=== PATIENT | male | born 1965 | race Two or more races ===

== ENCOUNTER 2020-03-25 00:55 | Emergency (ER) | payer SELFPAY ==
--- NOTE | 2020-03-25 01:05 | PDOC ---
History of Present Illness - General Chief Complaint: Alcohol intoxication Stated Complaint: INTOX Time Seen by Provider: 03/25/20 01:04 History Source: Patient Exam Limitations: Intoxication - History of Present Illness Initial Comments: 03/25/20 01:05 Pt presents to the ED intoxicated without signs or history of trauma. found intoxicated on the street, as per EMS. Patient is arousable to touch, but unable to answer questions. Past History - Medical History Home Medications: Ambulatory Orders Unobtainable 03/25/20 Review of Systems - Review of Systems Able to Perform ROS?: No (intoxicated ) *Physical Exam - Physical Exam 03/25/20 01:11 Gen; lethargic, arousable to touch HEENT: normocephalic, atraumatic CV: rrr no m/r/g Pulm: CTA b/l Abdomen: soft, non tender, non distended ext: no edema, deformity or tenderness NEuro: mumbles when touched. Oriented to name. Moving all extremities with good strength. Medical Decision Making - Medical Decision Making 03/25/20 01:18 Pt presents to the ED intoxicated without signs or history of trauma. Fingerstick is 99. Will hold for sobriety. 03/25/20 06:24 Patient is now awake, oriented x 3 and ambulatory with a steady gait. Since he is now clinically sober, will discharge home. Discharge - Discharge Information Problems reviewed: Yes Clinical Impression/Diagnosis: Intoxication Condition: Good Disposition: HOME - Admission No - Follow up/Referral Referrals: Wellington Archibald MD [Staff Physician] - - Patient Discharge Instructions Patient Printed Discharge Instructions: DI for Alcohol Use Disorder Additional Instructions: You were brought to the ED because you were very drunk. We let you sleep here until you were sober. You should return to the ED for new or worsening symptoms, especially signs of alcohol withdrawal, such as "the shakes", severe anxiety, nausea and vomiting, unexplained sweating. - Post Discharge Activity
[2020-03-25 01:09] VITALS: BP 128/87; PULSE 69; TEMP 98; BMI 31.1
== END 2020-03-25 06:47 | disposition home or self-care (01) ==
LOC: FER 00:55
DX: F10.129 Alcohol abuse with intoxication, unspecified (principal)
CPT/HCPCS: 82962; 99282-25